=== PATIENT | male | born 1985 | race Caucasian/White ===

== ENCOUNTER 2017-11-09 16:00 | Emergency (ER) | payer BC ==
[~2017-11-09] VITALS: Ht 185.4 cm; Wt 141.1 kg
[2017-11-09 16:04] VITALS: Ht 185.4 cm; Wt 141.1 kg
[2017-11-09 16:38] LABS: UA SPECIFIC GRAVITY >=1.030 (1.005-1.035); microscopic required? YES; urine erythrocyte TRACE (NEGATIVE)
[2017-11-09 16:39] LABS: BASOPHIL % 0.3 % (0-2); PLATELET COUNT 279 x10^3mcL (130-400); RED CELL DISTRIBUTION WIDTH 14.4 % (11.5-14.5)
[2017-11-09 16:47] LABS: CALCIUM 8.9 mg/dL (8.5-10.1); CARBON DIOXIDE 25.2 mmol/L (21-32); CHLORIDE SERUM 104 mmol/L (98-107); CREATININE SERUM 0.8 mg/dL (0.7-1.3); GFR1 > 60 mL/min; GLUCOSE SERUM 98 mg/dL (74-106); POTASSIUM SERUM 3.9 mmol/L (3.5-5.1); SODIUM SERUM 139 mmol/L (136-145)
[2017-11-09 16:54] LABS: ALBUMIN 4.1 g/dL (3.4-5.0); ALKALINE PHOSPHATASE 67 U/L (46-116); ALT/SGPT 115 U/L (16-63); AST/SGOT 47 U/L (15-37); BILIRUBIN TOTAL 1.4 mg/dL (0.20-1.00); TOTAL PROTEIN, SERUM 7.8 g/dL (6.4-8.2)
[2017-11-09 18:07] VITALS: BP 136/72
== END 2017-11-09 18:08 | disposition home or self-care (01) ==
LOC: ED 16:00
PROVIDERS: Specialist
DX: N45.1 Epididymitis (principal); N39.0 Urinary tract infection, site not specified
CPT/HCPCS: 36415; 87491; 87591

== ENCOUNTER 2017-11-11 02:40 | Inpatient (IN) | payer BC ==
[~2017-11-11] VITALS: Ht 185.4 cm; Wt 142.0 kg
[2017-11-11 02:46] VITALS: Ht 185.4 cm; Wt 142.0 kg
[2017-11-11 03:35] LABS: CALCIUM 8.9 mg/dL (8.5-10.1); CARBON DIOXIDE 25.2 mmol/L (21-32); CHLORIDE SERUM 102 mmol/L (98-107); CREATININE SERUM 0.9 mg/dL (0.7-1.3); GFR1 > 60 mL/min; GLUCOSE SERUM 126 mg/dL (74-106); PLATELET COUNT 272 x10^3mcL (130-400); POTASSIUM SERUM 3.9 mmol/L (3.5-5.1); RED CELL DISTRIBUTION WIDTH 14.1 % (11.5-14.5); SODIUM SERUM 134 mmol/L (136-145)
[2017-11-11 03:46] LABS: ALBUMIN 3.7 g/dL (3.4-5.0); ALKALINE PHOSPHATASE 65 U/L (46-116); ALT/SGPT 77 U/L (16-63); AST/SGOT 24 U/L (15-37); BILIRUBIN TOTAL 2.53 mg/dL (0.20-1.00); TOTAL PROTEIN, SERUM 7.1 g/dL (6.4-8.2)
[2017-11-11 03:52] LABS: C REACTIVE PROTEIN 14.8 mg/dL (<=0.9)
[2017-11-11 04:07] LABS: UA SPECIFIC GRAVITY 1.015 (1.005-1.035); microscopic required? YES; urine erythrocyte 2+ (NEGATIVE)
[2017-11-11 04:11] LABS: T3 TOTAL 0.99 ng/mL
[2017-11-11 04:12] LABS: FREE T4 0.97 ng/dL (0.76-1.46); FREE THYROXINE INDEX 2.4 ug/dL (1.4-4.5); T4(THYROXINE) 7.8 ug/dL (4.7-13.3)
[2017-11-11 04:14] LABS: CK-MB 1.4 ng/mL (0-3.6)
[2017-11-11 04:29] LABS: ERYTHROCYTE SED RATE 16 mm/hr (0-15)
[2017-11-11 04:40] LABS: BASOPHIL 0 % (0-2); MONOCYTE 7 % (0-7); SEGMENTED NEUTROPHILS 80 % (37-75)
[2017-11-11 04:41] LABS: BAND NEUTROPHIL 2 % (0-10)
[2017-11-11 04:45] LABS: PLATELET MORPHOLOGY LARGE PLATELET SEEN; ovalocyte/elliptocyte 1+
[2017-11-11 04:57] LABS: rbc morphology (normal/abnorm) NORMAL (NORMAL)
[2017-11-11 06:08] LABS: MAGNESIUM 1.7 mg/dL (1.8-2.4); PHOSPHOROUS 2.7 mg/dL (2.5-4.9)
[2017-11-11 06:10] VITALS: BP 111/67
[2017-11-11 08:43] VITALS: BP 100/59
[2017-11-11 09:38] LABS: AMPHETAMINE QUAL UR NONE DETECTED (See below)
[2017-11-11 16:54] VITALS: BP 112/60
[2017-11-11 18:33] VITALS: BP 112/60
== END 2017-11-11 21:02 | disposition short-term general hospital (02) | DRG 872 ==
LOC: ED 02:40 → MU 04:55
PROVIDERS: Internal Medicine; Specialist
DX: A41.9 Sepsis, unspecified organism (principal); Z68.41 Body mass index [BMI] 40.0-44.9, adult; N45.3 Epididymo-orchitis; E66.01 Morbid (severe) obesity due to excess calories; R74.0 Nonspecific elevation of levels of transaminase and lactic acid dehydrogenase [LDH]; Z66 Do not resuscitate; Z80.6 Family history of leukemia
CPT/HCPCS: 36600; 84439; J1885; J2175; J2270; J2405; J2543; J3490; J7030; Q0092